=== PATIENT | female | born 1990 ===

== ENCOUNTER 2016-10-27 15:46 | Emergency (ER) | payer MEDICAID ==
[2016-10-27 15:55] VITALS: BP 122/86; PULSE 90; RESP 20; TEMP 99.7; O2SAT 98
--- NOTE | 2016-10-27 17:33 | ED PDOC ---
HPI: Psych/Substance Abuse Time Seen by Provider: 10/27/16 17:10 Chief Complaint (Nursing): Psychiatric Evaluation Chief Complaint (Provider): Psychiatric Evaluation History Per: Patient History/Exam Limitations: no limitations Onset/Duration Of Symptoms: Hrs Current Symptoms Are (Timing): Better Modifying Factor(s): None Associated Symptoms: Anxiety Additional Complaint(s): 17:10 Daysi Naik is a 26 year old female accompanied by her coworkers that was brought to the ED via EMS after experiencing a panic attack earlier today. Patient states that she was being "escorted out of her three year job" when she felt as though she could not breathe, lost control of her arms and legs, her eyesight "went black," and that she felt as thought she was going to faint. She reports that she requested for the officers who were escorting her to call EMS. Patient says that she has never experienced this type of stress before. She is not on any medications, does not smoke, socially drinks alcohol, and dneies using drugs. She has a family history of heart problems. PMD: Shelly Castillo Past Medical History Reviewed: Historical Data, Nursing Documentation, Vital Signs Vital Signs: Last Vital Signs Temp 99.7 F H 10/27/16 15:52 Pulse 90 10/27/16 15:52 Resp 20 10/27/16 15:52 BP 122/86 10/27/16 15:52 Pulse Ox 98 10/27/16 15:52 - Medical History PMH: No Chronic Diseases - Surgical History Surgical History: No Surg Hx - Family History Family History: States: Other (family hx of heart problems) - Social History Current smoker - smoking cessation education provided: No Alcohol: Social Drugs: Denies - Allergies Allergies/Adverse Reactions: Allergies Allergy/AdvReac Type Severity Reaction Status Date / Time No Known Allergies Allergy Verified 10/27/16 15:52 Review of Systems Psych: Positive for: Anxiety (presently better, but was brought to ED due to anxiety). Negative for: Suicidal ideation Physical Exam - Reviewed Nursing Documentation Reviewed: Yes Vital Signs Reviewed: Yes - Physical Exam Appears: Positive for: Non-toxic, No Acute Distress Head Exam: Positive for: ATRAUMATIC, NORMOCEPHALIC Skin: Positive for: Normal Color, Warm Eye Exam: Positive for: Normal appearance, EOMI, PERRL Cardiovascular/Chest: Positive for: Regular Rate, Rhythm. Negative for: Murmur Respiratory: Positive for: Normal Breath Sounds. Negative for: Respiratory Distress Gastrointestinal/Abdominal: Positive for: Soft. Negative for: Tenderness Neurologic/Psych: Positive for: Alert, Oriented - ECG O2 Sat by Pulse Oximetry: 98 (RA) Pulse Ox Interpretation: Normal Medical Decision Making Medical Decision Makin:35 Initial Impression: Adjustment reaction Crisis eval Upon provider reevaluation patient is feeling better, is medically stable, and requires no further treatment in the ED at this time. Patient will be discharged home with instructions to purchase [employer]. Counseling was provided, discussed plans with patient for the future. There is agreement to discharge plan. Scribe Attestation: Documented by Danielle Shah, acting as a scribe for Kelsi Quintero MD Provider Scribe Attestation: All medical record entries made by the Scribe were at my direction and personally dictated by me. I have reviewed the chart and agree that the record accurately reflects my personal performance of the history, physical exam, medical decision making, and the department course for this patient. I have also personally directed, reviewed, and agree with the discharge instructions and disposition. Disposition - Clinical Impression Clinical Impression: Adjustment reaction - Patient ED Disposition Is Patient to be Admitted: No - Disposition Disposition: Routine/Home Disposition Time: 17:35 Condition: GOOD Instructions: Stress (ED)
== END 2016-10-28 | disposition home or self-care (01) ==
LOC: H.ER 15:46
DX: F43.20 Adjustment disorder, unspecified (principal)

== ENCOUNTER 2016-10-29 23:57 | Emergency (ER) | payer MEDICAID ==
[2016-10-30 00:06] VITALS: BP 134/78; PULSE 96; RESP 18; TEMP 98; O2SAT 100
[2016-10-30 01:15] LABS: BASO % 0.4 % (0.0-2.0); EOS % 0.2 % (0.0-4.0); HEMATOCRIT 42.8 % (34.0-47.0); LYMPH # 1.4 K/uL (1.0-4.3); LYMPH % 14.5 % (20.0-40.0); MEAN CELL VOLUME 94.1 fl (81.0-99.0); MEAN CORPUSCULAR HEMOGLOBIN 32.1 pg (27.0-31.0); MEAN CORPUSCULAR HGB CONC 34.1 g/dL (33.0-37.0); MONO # 0.5 K/uL (0.0-0.8); MONO % 4.9 % (0.0-10.0); NEUT # 7.7 K/uL (1.8-7.0); WHITE BLOOD COUNT 9.6 K/uL (4.8-10.8)
--- NOTE | 2016-10-30 01:32 | ED PDOC ---
HPI: Psych/Substance Abuse Time Seen by Provider: 10/29/16 23:59 Chief Complaint (Nursing): Substance Abuse Chief Complaint (Provider): Psychiatric Evaluation History Per: Patient, Other (Friend (Jaki)) History/Exam Limitations: no limitations (though patient providing limited responses to questions, bulk of history is as per patient's friend at bedside) Onset/Duration Of Symptoms: Hrs (todahy) Current Symptoms Are (Timing): Still Present Modifying Factor(s): Other (possible substance abuse) Associated Symptoms: Other (acutely erratic/bizarre behavior). denies: Suicidal Thoughts Involuntary Hold By: None Additional Complaint(s): Germanie Naik is a 26 year old female, with no pertinent past medical/psychiatric history, who presents to the ED on 10/29/16, accompanied by her friend (Jaki), for a psychiatric evaluation secondary to acutely bizarre/ erratic behavior that she had begun to exhibit just prior to arrival. Bulk of history is conveyed by friend, as patient is guarded/providing limited answers to provider questions. 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 At that time patient had been diagnosed with a panic attack and was subsequently discharged home with instructions to begin taking melatonin as needed to aid with sleep. Despite this, patient states that she has not slept since her termination and further admits to having met with a male maintenance mechanic elevators last night with whom she both smoked an unknown substance and engaged in what she reports was consensual sexual intercourse. Patient denies any physical complaints or suicidal ideation at this time, stating simply that she would like to be allowed to sleep, though she appears to be both disorganized and internally preoccupied at time of interview. Friend further reports that patient is currently living with her grandmother and that her 6 year old son is currently on a returning flight from [facility] [place], where he had gone with his grandmother to visit his father. No previous history of drug abuse, though patient does drink on occasion, admitting that she ingested 1 hard apple cider this evening. Patient had been reportedly behaving normally prior to symptom onset, being capable of operating a car to drive some of her other friends to various locations. PMD: none Past Medical History Reviewed: Historical Data, Nursing Documentation, Vital Signs Vital Signs: Last Vital Signs Temp 98 F 10/30/16 00:03 Pulse 96 H 10/30/16 00:03 Resp 18 10/30/16 00:03 BP 134/78 10/30/16 00:03 Pulse Ox 100 10/30/16 00:03 - Medical History PMH: No Chronic Diseases Denies: Diabetes, Seizures, Sexually Transmitted Disease - Surgical History Surgical History: No Surg Hx - Family History Family History: States: Unknown Family Hx - Living Arrangements Living Arrangements: With Family - Social History Current smoker - smoking cessation education provided: No Alcohol: None Drugs: Denies - Allergies Allergies/Adverse Reactions: Allergies Allergy/AdvReac Type Severity Reaction Status Date / Time No Known Allergies Allergy Verified 10/27/16 15:52 Review of Systems Psych: Positive for: Other (insomnia, acutely erratic/bizarre behavior) Physical Exam - Reviewed Nursing Documentation Reviewed: Yes Vital Signs Reviewed: Yes - Physical Exam Appears: Positive for: Non-toxic, No Acute Distress Head Exam: Positive for: ATRAUMATIC, NORMOCEPHALIC Skin: Positive for: Normal Color, Warm, Dry Eye Exam: Positive for: Normal appearance, EOMI, PERRL ENT: Positive for: Normal ENT Inspection Neck: Positive for: Normal, Painless ROM, Supple Cardiovascular/Chest: Positive for: Regular Rate, Rhythm. Negative for: Murmur Respiratory: Positive for: Normal Breath Sounds. Negative for: Wheezing Gastrointestinal/Abdominal: Positive for: Normal Exam, Soft. Negative for: Tenderness Back: Positive for: Normal Inspection Extremity: Positive for: Normal ROM (moving all extremities). Negative for: Deformity Neurologic/Psych: Positive for: Alert, Oriented (x2 (person/place)), Mood/ Affect (internally preoccupied, poor eye contact) - Laboratory Results Result Diagrams: 10/30/16 01:00 10/30/16 01:00 - ECG O2 Sat by Pulse Oximetry: 100 (RA) Pulse Ox Interpretation: Normal Medical Decision Making Medical Decision Makin:59 Initial Impression: 26 year old female with psychotic features in setting of recent life stressor as well as possible substance abuse Initial Plan: * Labs * Alcohol Serum * Accucheck * Upreg * Udip * Urinalysis * Urine Drug Screen * Crisis Evaluation * 1:1 Observation (secondary to high risk of elopement) * Reevaluation Labs reviewed with no clinically significant abnormalities. UDS is (+) for cannabinoids. 03:08 Patient has been evaluated by Crisis and does not meet criterion for psychiatric admission. She is psychiatrically stable for discharge home with a diagnosis of adjustment reaction as per Dr. Quiñones (Psychiatrist principal automation engineer). Outpatient followup instructions/referrals provided by [employer] [facility]. Upon provider reevaluation patient is A&O x3. She is medically stable for discharge home with friend who has remained at bedside. Counseling provided regarding diagnosis and need for followup as directed by [employer]. There is agreement to discharge plan, return for acute worsening of symptoms. Clinical Impression: adjustment reaction, cannabis abuse with cannabis-induced anxiety disorder Scribe Attestation: Documented by Lizette Reina, acting as a scribe for Bari Browne MD. Provider Scribe Attestation: All medical record entries made by the Scribe were at my direction and personally dictated by me. I have reviewed the chart and agree that the record accurately reflects my personal performance of the history, physical exam, medical decision making, and the department course for this patient. I have also personally directed, reviewed, and agree with the discharge instructions and disposition. Disposition - Clinical Impression Clinical Impression: Adjustment reaction, Cannabis abuse with cannabis-induced anxiety disorder - Patient ED Disposition Is Patient to be Admitted: No Counseled Patient/Family Regarding: Studies Performed, Diagnosis, Need For Followup - Disposition Disposition: Routine/Home Disposition Time: 03:08 Condition: STABLE Instructions: Stress (ED), Cannabis Abuse (ED)
[2016-10-30 01:33] LABS: ALB/GLOB RATIO 1.5 (1.0-2.1); ALCOHOL SERUM < 10 mg/dl (0-10); ALKALINE PHOSPHATASE 80 U/L (38-126); ALT/SGPT 34 U/L (9-52); AST/SGOT 30 U/L (14-36); BILIRUBIN,TOTAL 0.9 mg/dl (0.2-1.3); BLOOD UREA NITROGEN 14 mg/dl (7-17); CALCIUM 8.8 mg/dL (8.4-10.2); CARBON DIOXIDE 21 mmol/L (22-30); CHLORIDE 104 mmol/L (98-107); GFR AFRICAN-AMERICAN > 60; GLUCOSE,RANDOM 101 mg/dL (65-105); POTASSIUM 3.8 MMOL/L (3.6-5.0); SODIUM 140 mmol/l (132-148); TOTAL PROTEIN 7.4 G/DL (6.3-8.2)
[2016-10-30 01:39] LABS: RBC URINE 7 /hpf (0-3); URINE BACTERIA RARE (<OCC); URINE BILIRUBIN NEGATIVE (NEGATIVE); URINE BLOOD NEGATIVE (NEGATIVE); URINE COLOR YELLOW (YELLOW); URINE GLUCOSE (UA) NEG (Normal); URINE KETONE 20 mg/dL (NEGATIVE); URINE LEUKOCYTE ESTERASE TRACE Leu/uL (Negative); URINE PROTEIN NEGATIVE (NEGATIVE); URINE UROBILINOGEN 0.2-1.0 mg/dL (0.2-1.0); WBC URINE 16 /hpf (0-5)
== END 2016-10-30 03:15 | disposition home or self-care (01) ==
LOC: H.ER 23:57
DX: F12.180 Cannabis abuse with cannabis-induced anxiety disorder (principal)